=== PATIENT | female | born 1955 | race Caucasian/White ===

== ENCOUNTER 2016-07-02 16:35 | Emergency (ER) | payer OTHER ==
[~2016-07-02] VITALS: Ht 167.6 cm; Wt 136.8 kg
[~2016-07-02 16:35] MED LIST: ACETAMINOPHEN500 MG PO; ACID CONTROL150 MG PO; ADVIL,NUPRIN,M200 MG PO; ANTI-DIARRHEA2 MG PO; AUGMENTIN500 MG PO; Aspirin E.C. PO; BISACODYL SUPP10 MG PR; CIPRO500 MG PO; CYMBALTA60 MG PO; Cipro PO; DESYREL 150 MG150 MG PO; DESYREL100 MG PO; DILAUDID2 MG PO; Desyrel PO; FLAGYL500 MG PO; MELOXICAM7.5 MG PO; MOBIC15 MG PO; MOBIC7.5 MG PO; NEURONTIN300 MG PO; ONDANSETRON HCL4 M1 PO; ONE-A-DAY ESSE1 EAC1 PO; PANTOPRAZOLE SO40 MG PO; PERCOCET 5/31 TABLET PO; PRAVASTATIN SOD40 MG PO; PROBIOTIC1 EAC1 PO; Pepcid PO; Protonix PO; RANITIDINE HCL150 MG PO; REGLAN5 MG PO; SAVELLA50 MG PO; SKELAXIN800 MG PO; STOOL SOFTENER1 EAC2 PO; TORADOL10 MG PO; TRAZAMINE CONVE50 MG PO; TRAZODONE HCL150 MG PO; TYLENOL EXTRA500 MG PO; TYLENOL REGULA325 MG PO; ULTRAM50 MG PO; VICODIN 5-3001 EACH PO; ZANTAC150 MG PO; ZOFRAN4 MG PO
[2016-07-02] MEDS ORDERED: CYMBALTA60 MG PO (18:07)
[2016-07-02] MEDS ORDERED: MOTRIN800 MG PO (18:42)
[2016-07-02] MEDS ORDERED: VALIUM5 MG PO (18:42)
[2016-07-02] MEDS ORDERED: NORCO 5/3251 TABLET PO (18:42)
[2016-07-02 19:11] VITALS: BP 166/90
== END 2016-07-02 19:12 | disposition home or self-care (01) ==
LOC: EME 16:35
DX: S29.012A Strain of muscle and tendon of back wall of thorax, initial encounter (principal); W19.XXXA Unspecified fall, initial encounter; F17.200 Nicotine dependence, unspecified, uncomplicated
CPT/HCPCS: 73030; 99281; 99283

== ENCOUNTER 2016-09-22 17:15 | Emergency (ER) | payer OTHER ==
[~2016-09-22] VITALS: Ht 167.6 cm; Wt 136.4 kg
[~2016-09-22 17:15] MED LIST changes: +MOTRIN800 MG PO; +NORCO 5/3251 TABLET PO; +VALIUM5 MG PO
[2016-09-22] MEDS ORDERED: NAPROSYN500 MG PO (21:54)
[2016-09-22] MEDS ORDERED: NORCO 5/3251 TABLET PO (21:54)
[2016-09-22 22:14] VITALS: BP 129/81
== END 2016-09-22 22:17 | disposition home or self-care (01) ==
LOC: EXP 17:15 → EME 17:15 → EXP 22:17
DX: S43.402A Unspecified sprain of left shoulder joint, initial encounter (principal); X58.XXXA Exposure to other specified factors, initial encounter; F17.200 Nicotine dependence, unspecified, uncomplicated
CPT/HCPCS: 73030; 99281; 99284

== ENCOUNTER 2016-12-09 13:34 | Emergency (ER) | payer OTHER ==
[~2016-12-09] VITALS: Ht 172.7 cm; Wt 141.0 kg
[~2016-12-09 13:34] MED LIST changes: +NAPROSYN500 MG PO
[2016-12-09 15:59] LABS: HEMATOCRIT 43.3 % (36.0-46.0); MCH 29.9 PG (29.0-34.0); MCHC 31.2 G/DL (30.0-36.0); MCV 95.8 FL (83-99); MEAN PLAT.VOLUME 9.2 uM^3 (9.5-12.4); PLATELET COUNT 256 K/uL (156-360); RBC DIS.WIDTH-SD 52.3 % (39-53); RED BLOOD COUNT 4.52 M/uL (3.80-5.20); WHITE BLOOD COUNT 7.5 K/uL (4.1-10.2)
[2016-12-09 16:22] LABS: CHLORIDE 104 mEq/L (99-109); SODIUM 145 mEq/L (136-147)
[2016-12-09 16:24] LABS: GLUCOSE 114 mg/dL (70-99)
[2016-12-09 16:26] LABS: ANION GAP 10 MEQ/L (2-14); TOTAL BILIRUBIN 0.3 mg/dL (0.0-1.0)
[2016-12-09 16:28] LABS: ALKALINE PHOSPHATASE 95 IU/L (3-129); GFR ESTIMATE (CALCULATED) > 59 mL/min/
[2016-12-09 16:29] LABS: UREA NITROGEN (BUN) 13 mg/dL (9-23)
[2016-12-09 16:31] LABS: LIPASE 13 U/L (1.0-51.0)
[2016-12-09] MEDS ORDERED: ARTHRITIS PAIN650 M1 PO (19:36)
[2016-12-09] MEDS ORDERED: POTASSIUM CHLO10 ME3 PO (19:37)
[2016-12-09] MEDS ORDERED: VIIBRYD40 MG PO (19:38)
[2016-12-09] MEDS ORDERED: GABAPENTIN300 MG PO (19:39)
[2016-12-09] MEDS ORDERED: METOPROLOL SUC100 MG PO (19:39)
[2016-12-09] MEDS ORDERED: LASIX20 MG PO (19:40)
[2016-12-09] MEDS ORDERED: ZANTAC150 MG PO (19:40)
[2016-12-09] MEDS ORDERED: ALKA-SELTZER H1 EACH PO (19:41)
[2016-12-09 19:42] LABS: ABS NEUTROPHIL COUNT 5.8; BAND NEUTROPHILS 0.9 % (0-8.0); BASOPHILS 0.9 %; EOSINOPHIL ABS CT 0.1; EOSINOPHILS 0.9 % (0-5.0); LYMPHOCYTES 14.1 % (15.0-45.0); PLAT.SUFFICIENCY ADEQUATE
[2016-12-10 00:56] VITALS: BP 111/73
== END 2016-12-10 00:56 | disposition left against medical advice (07) ==
LOC: EME 13:34
PROVIDERS: Physician Assistant
DX: K56.60 Unspecified intestinal obstruction (principal); M54.5 Low back pain; Z53.20 Procedure and treatment not carried out because of patient's decision for unspecified reasons; M79.7 Fibromyalgia; K21.9 Gastro-esophageal reflux disease without esophagitis; F17.200 Nicotine dependence, unspecified, uncomplicated
CPT/HCPCS: 71020; 72131; 74176; 80053; 81003; 83690; 85007; 85027; 99281; 99284; J2250; J2405; J3010; J7030

== ENCOUNTER 2016-12-12 09:33 | Inpatient (IN) | payer OTHER ==
[~2016-12-12] VITALS: Ht 167.6 cm; Wt 139.5 kg
[~2016-12-12 09:33] MED LIST changes: +ALKA-SELTZER H1 EACH PO; +ARTHRITIS PAIN650 M1 PO; +GABAPENTIN300 MG PO; +LASIX20 MG PO; +METOPROLOL SUC100 MG PO; +POTASSIUM CHLO10 ME3 PO; +VIIBRYD40 MG PO
[2016-12-12 10:31] LABS: HEMATOCRIT 41.7 % (36.0-46.0); MCH 30.1 PG (29.0-34.0); MCHC 31.7 G/DL (30.0-36.0); MEAN PLAT.VOLUME 9.4 uM^3 (9.5-12.4); PLATELET COUNT 227 K/uL (156-360); RBC DIS.WIDTH-SD 51.9 % (39-53); RED BLOOD COUNT 4.39 M/uL (3.80-5.20); WHITE BLOOD COUNT 6.3 K/uL (4.1-10.2)
[2016-12-12 10:42] LABS: CHLORIDE 104 mEq/L (99-109); POTASSIUM 3.8 mEq/L (3.7-5.4); SODIUM 140 mEq/L (136-147)
[2016-12-12 10:44] LABS: GLUCOSE 102 mg/dL (70-99)
[2016-12-12 10:46] LABS: ANION GAP 8 MEQ/L (2-14)
[2016-12-12 10:48] LABS: ALKALINE PHOSPHATASE 106 IU/L (3-129); GFR ESTIMATE (CALCULATED) > 59 mL/min/
[2016-12-12 10:49] LABS: UREA NITROGEN (BUN) 8 mg/dL (9-23)
[2016-12-12 10:50] LABS: DIRECT BILIRUBIN 0.2 mg/dL (0.0-0.3)
[2016-12-12 10:51] LABS: LIPASE 961 U/L (1.0-51.0); TOTAL BILIRUBIN 0.4 mg/dL (0.0-1.0)
[2016-12-12 12:57] VITALS: BP 135/69
[2016-12-12 18:17] VITALS: BP 134/64
[2016-12-12 18:57] VITALS: BP 125/60
[2016-12-13 00:09] VITALS: BP 114/56
[2016-12-13 04:22] VITALS: BP 114/56
[2016-12-13 06:57] LABS: HEMATOCRIT 39.1 % (36.0-46.0); MCH 30.3 PG (29.0-34.0); MCHC 31.2 G/DL (30.0-36.0); MEAN PLAT.VOLUME 9.5 uM^3 (9.5-12.4); PLATELET COUNT 225 K/uL (156-360); RBC DIS.WIDTH-CV 14.9 % (11.8-14.6); RBC DIS.WIDTH-SD 53.2 % (39-53); RED BLOOD COUNT 4.03 M/uL (3.80-5.20); WHITE BLOOD COUNT 9.5 K/uL (4.1-10.2)
[2016-12-13 07:08] LABS: ANION GAP 8 MEQ/L (2-14); CHLORIDE 102 MEQ/L (99-109); GFR ESTIMATE (CALCULATED) > 59 mL/min/; GLUCOSE 148 mg/dL (70-99); POTASSIUM 4.1 MEQ/L (3.7-5.4); SAMPLE HEMOLYSIS CHECK 0; SAMPLE ICTERIC CHECK 0; SAMPLE LIPEMIA CHECK 0; SODIUM 140 MEQ/L (136-147); UREA NITROGEN (BUN) 6 mg/dL (9-23)
[2016-12-13 08:10] VITALS: BP 141/69
[2016-12-13 11:10] VITALS: BP 127/83
[2016-12-13 15:46] VITALS: BP 125/58
[2016-12-13 19:18] VITALS: BP 122/68
[2016-12-14 00:29] VITALS: BP 117/57
[2016-12-14 07:02] VITALS: BP 136/68
[2016-12-14] MEDS ORDERED: TORADOL10 MG PO (07:48)
== END 2016-12-14 12:42 | disposition home or self-care (01) | DRG 354 ==
LOC: EME 09:33 → EDOF 10:50 → 2EASTP 12:12 → 3EAST 17:51 → 2EASTP 18:11
PROVIDERS: Emergency Medicine; Surgery
PROC: 0WUF0JZ Supplement Abdominal Wall with Synthetic Substitute, Open Approach (ICD-10-PCS; principal; 2016-12-12)
DX: K43.0 Incisional hernia with obstruction, without gangrene (principal); Z68.42 Body mass index [BMI] 45.0-49.9, adult; E66.01 Morbid (severe) obesity due to excess calories; F17.210 Nicotine dependence, cigarettes, uncomplicated; K21.9 Gastro-esophageal reflux disease without esophagitis; M79.7 Fibromyalgia; K42.9 Umbilical hernia without obstruction or gangrene; M54.9 Dorsalgia, unspecified; M19.90 Unspecified osteoarthritis, unspecified site; Z90.49 Acquired absence of other specified parts of digestive tract
CPT/HCPCS: 71020; 72131; 74176; 80048; 80053; 80076; 81003; 83690; 85007; 85027; 86900; 86901; 87040; 93005; 94799; 99281; 99284; 99285; C1781; J0330; J1100; J1170; J2250; J2405; J2543; J3010; J3480; J7030

== ENCOUNTER 2017-01-09 14:32 | Emergency (ER) | payer OTHER ==
[~2017-01-09] VITALS: Ht 165.1 cm; Wt 141.0 kg
[2017-01-09 15:26] LABS: HEMATOCRIT 42.6 % (36.0-46.0); MCH 29.7 PG (29.0-34.0); MCHC 31.2 G/DL (30.0-36.0); MCV 95.1 FL (83-99); MEAN PLAT.VOLUME 9.6 uM^3 (9.5-12.4); PLATELET COUNT 225 K/uL (156-360); RBC DIS.WIDTH-CV 15.2 % (11.8-14.6); RBC DIS.WIDTH-SD 52.5 % (39-53); RED BLOOD COUNT 4.48 M/uL (3.80-5.20); WHITE BLOOD COUNT 7.3 K/uL (4.1-10.2)
[2017-01-09 15:35] LABS: CHLORIDE 107 mEq/L (99-109); POTASSIUM 3.6 mEq/L (3.7-5.4); SODIUM 144 mEq/L (136-147)
[2017-01-09 15:37] LABS: GLUCOSE 134 mg/dL (70-99)
[2017-01-09 15:38] LABS: ANION GAP 9 MEQ/L (2-14)
[2017-01-09 15:39] LABS: TOTAL BILIRUBIN 0.2 mg/dL (0.0-1.0)
[2017-01-09 15:40] LABS: ALKALINE PHOSPHATASE 129 IU/L (3-129)
[2017-01-09 15:41] LABS: GFR ESTIMATE (CALCULATED) > 59 mL/min/
[2017-01-09 15:42] LABS: UREA NITROGEN (BUN) 15 mg/dL (9-23)
[2017-01-09 15:44] LABS: LIPASE 27 U/L (1.0-51.0)
[2017-01-09 19:10] LABS: TROP-I INTERPRETATION NEGATIVE; TROPONIN-I < 0.01 ng/mL (0.0-0.30)
[2017-01-09 19:53] VITALS: BP 159/97
== END 2017-01-09 19:53 | disposition home or self-care (01) ==
LOC: EME 14:32 → EXP 14:32
PROVIDERS: Emergency Medicine
DX: R14.0 Abdominal distension (gaseous) (principal); R10.9 Unspecified abdominal pain; R11.0 Nausea; R19.7 Diarrhea, unspecified; Z98.890 Other specified postprocedural states; F17.200 Nicotine dependence, unspecified, uncomplicated; I10 Essential (primary) hypertension; Z90.49 Acquired absence of other specified parts of digestive tract
CPT/HCPCS: 74020; 74177; 80053; 81003; 83605; 83690; 84484; 85027; 99281; 99285; J1885; J7030; J7040

== ENCOUNTER 2017-07-03 18:55 | Inpatient (IN) | payer OTHER ==
[~2017-07-03] VITALS: Ht 160 cm; Wt 143.3 kg
[~2017-07-03 18:55] MED LIST changes: +ZANTAC300 MG PO
[2017-07-03 19:46] LABS: HEMATOCRIT 47.3 % (36.0-46.0); MCH 31.3 PG (29.0-34.0); MCHC 31.7 G/DL (30.0-36.0); MCV 98.5 FL (83-99); PLATELET COUNT 177 K/uL (156-360); RBC DIS.WIDTH-CV 16.4 % (11.8-14.6); RBC DIS.WIDTH-SD 59.5 % (39-53); WHITE BLOOD COUNT 4.9 K/uL (4.1-10.2)
[2017-07-03 19:56] LABS: CHLORIDE 100 mEq/L (99-109); POTASSIUM 3.8 mEq/L (3.7-5.4); SODIUM 138 mEq/L (136-147)
[2017-07-03 19:58] LABS: GLUCOSE 121 mg/dL (70-99)
[2017-07-03 20:02] LABS: CREATININE 0.6 mg/dL (0.6-1.3); GFR ESTIMATE (CALCULATED) > 59 mL/min/; UREA NITROGEN (BUN) 11 mg/dL (9-23)
[2017-07-03] MEDS ORDERED: IBUPROFEN600 MG PO (22:40)
[2017-07-03] MEDS ORDERED: LISINOPRIL10 MG PO (22:40)
[2017-07-03] MEDS ORDERED: ADULT ASPIRIN R81 MG PO (22:40)
[2017-07-03] MEDS ORDERED: FLEXERIL10 MG PO (22:40)
[2017-07-03] MEDS ORDERED: WELLBUTRIN XL150 MG PO (22:40)
[2017-07-03] MEDS ORDERED: SEROQUEL12.5 MG PO (22:40)
[2017-07-04] VITALS (13 sets, daily range): BP systolic 90–153; BP diastolic 59–91
[2017-07-04 00:17] LABS: BASE EXCESS 2.3 mEq/L (-3 to +3); CARBOXY HGB 5.8 % (0-5); COMMENTS - BLOOD GASES C+A+; DEVICE NC; METHEMOGLOBIN 0.1 % (0-1.5); O2 FLOW 5 L/MIN; PCO2 73 mm Hg (35-45); PO2 89 mm Hg (80-100); SITE LR
[2017-07-04 00:18] LABS: pH 7.25 (7.35-7.45)
[2017-07-04 01:19] LABS: TROP-I INTERPRETATION NEGATIVE; TROPONIN-I 0.02 ng/mL (0.0-0.30)
[2017-07-04 02:02] LABS: BASE EXCESS 2.5 mEq/L (-3 to +3); CARBOXY HGB 4.5 % (0-5); COMMENTS - BLOOD GASES C+A+; DEVICE HHFNC; FI02 50 %; METHEMOGLOBIN 0.8 % (0-1.5); O2 FLOW 45 L/MIN; PCO2 87 mm Hg (35-45); PO2 65 mm Hg (80-100); SITE LB
[2017-07-04 03:41] LABS: BASE EXCESS 3.8 mEq/L (-3 to +3); BICARBONATE 32.7 mEq/L (22-26); CARBOXY HGB 5.7 % (0-5); METHEMOGLOBIN 0.1 % (0-1.5); PCO2 68 mm Hg (35-45); PO2 73 mm Hg (80-100)
[2017-07-04 03:42] LABS: COMMENTS - BLOOD GASES C+A+; DEVICE NIV; FI02 50 %; SITE RR
[2017-07-04 03:43] LABS: MODE SPONT; PEEP 7 CM/H20; PRES. SUPPORT 12 CM/H2O; TOTAL RESP RATE 18 resp/min; pH 7.29 (7.35-7.45)
[2017-07-04 04:39] LABS: BASE EXCESS 2.4 mEq/L (-3 to +3); BICARBONATE 32.6 mEq/L (22-26); PO2 76 mm Hg (80-100)
[2017-07-04 04:40] LABS: COMMENTS - BLOOD GASES C+A+; DEVICE NIV; FI02 50 %; MODE SPONT; PCO2 76 mm Hg (35-45); PEEP 7 CM/H20; PRES. SUPPORT 12 CM/H2O; SITE RR; TOTAL RESP RATE 16 resp/min; pH 7.24 (7.35-7.45)
[2017-07-04 07:28] LABS: BASE EXCESS 1.5 mEq/L (-3 to +3); BICARBONATE 31.8 mEq/L (22-26); CARBOXY HGB 3.7 % (0-5); PCO2 76 mm Hg (35-45); PO2 73 mm Hg (80-100)
[2017-07-04 07:29] LABS: COMMENTS - BLOOD GASES A+C+; DEVICE PB VENT; FI02 45 %; MODE SPONT NIV; PEEP 7 CM/H20; PRES. SUPPORT 14 CM/H2O; SITE RR; TOTAL RESP RATE 15 resp/min; pH 7.23 (7.35-7.45)
[2017-07-04 10:05] LABS: BICARBONATE 29.1 mEq/L (22-26); CARBOXY HGB 3.6 % (0-5); COMMENTS - BLOOD GASES A+C+; METHEMOGLOBIN 1.3 % (0-1.5); PCO2 54 mm Hg (35-45); PO2 64 mm Hg (80-100); SITE RR; pH 7.34 (7.35-7.45)
[2017-07-04 10:06] LABS: DEVICE VENT; FI02 50 %; MECHANICAL RATE 18 resp/min; MODE ACVC; PEEP 8 CM/H20; TIDAL VOLUME 500 ML; TOTAL RESP RATE 18 resp/min
[2017-07-05] VITALS (22 sets, daily range): BP systolic 84–133; BP diastolic 58–86
[2017-07-05 05:35] LABS: HEMATOCRIT 43.1 % (36.0-46.0); HEMOGLOBIN 13.8 G/DL (11.9-15.5); MCH 31.1 PG (29.0-34.0); MCV 97.1 FL (83-99); PLATELET COUNT 212 K/uL (156-360); RBC DIS.WIDTH-CV 16.9 % (11.8-14.6); RED BLOOD COUNT 4.44 M/uL (3.80-5.20); WHITE BLOOD COUNT 9.6 K/uL (4.1-10.2)
[2017-07-05 06:19] LABS: CHLORIDE 98 MEQ/L (99-109); GFR ESTIMATE (CALCULATED) 44 mL/min/; GLUCOSE 155 mg/dL (70-99); POTASSIUM 3.7 MEQ/L (3.7-5.4); SODIUM 135 MEQ/L (136-147)
[2017-07-05 06:34] LABS: CREATININE 1.3 MG/DL (0.6-1.3); UREA NITROGEN (BUN) 30 mg/dL (9-23)
[2017-07-06] VITALS (24 sets, daily range): BP systolic 86–156; BP diastolic 53–105
[2017-07-06 04:49] LABS: CHLORIDE 102 mEq/L (99-109); POTASSIUM 3.8 mEq/L (3.7-5.4); SODIUM 137 mEq/L (136-147)
[2017-07-06 04:51] LABS: GLUCOSE 153 mg/dL (70-99)
[2017-07-06 04:54] LABS: GFR ESTIMATE (CALCULATED) > 59 mL/min/
[2017-07-06 04:55] LABS: UREA NITROGEN (BUN) 30 mg/dL (9-23)
[2017-07-06 05:04] LABS: CREATININE 0.7 mg/dL (0.6-1.3)
[2017-07-06 17:20] LABS: BASOPHIL (%) 0.1 % (0-1); EOSINOPHIL (%) 0 % (0-5); HEMATOCRIT 42.6 % (36.0-46.0); HEMOGLOBIN 13.9 G/DL (11.9-15.5); IMMATURE GRANULOCYTE (%) 0.4 % (0.0-0.7); LYMPHOCYTE (%) 8.7 % (15-42); LYMPHOCYTE COUNT 0.9 K/uL (1.0-2.8); MCH 31.8 PG (29.0-34.0); MCHC 32.6 G/DL (30.0-36.0); MCV 97.5 FL (83-99); MONOCYTE (%) 7.3 % (3-12); MONOCYTE COUNT 0.7 K/uL (0-0.8); NEUTROPHIL (%) 83.5 % (45-76); NEUTROPHIL COUNT 8.5 K/uL (1.8-6.4); PLATELET COUNT 195 K/uL (156-360); RBC DIS.WIDTH-CV 16.9 % (11.8-14.6); RBC DIS.WIDTH-SD 60.3 % (39-53); RED BLOOD COUNT 4.37 M/uL (3.80-5.20); WHITE BLOOD COUNT 10.1 K/uL (4.1-10.2)
[2017-07-06 18:08] LABS: ALBUMIN 3.5 G/DL (3.2-4.8); ALKALINE PHOSPHATASE 81 IU/L (3-129); ALT (GPT) 11 IU/L (3-49); AST (GOT) 10 IU/L (2-34); CHLORIDE 102 MEQ/L (99-109); CREATININE 0.6 MG/DL (0.6-1.3); GFR ESTIMATE (CALCULATED) > 59 mL/min/; GLUCOSE 130 mg/dL (70-99); POTASSIUM 4.2 MEQ/L (3.7-5.4); SODIUM 138 MEQ/L (136-147); TOTAL BILIRUBIN 0.3 MG/DL (0.0-1.0); TOTAL PROTEIN 6.3 G/DL (6.4-8.3); UREA NITROGEN (BUN) 29 mg/dL (9-23)
[2017-07-06 18:31] LABS: HIGH-SENS C-REACTIVE PROTEIN 0.76 MG/DL (0.02-0.20); MAGNESIUM 2.4 mg/dl (1.3-2.7); PHOSPHORUS 3.4 mg/dL (2.5-4.9)
[2017-07-07] VITALS (19 sets, daily range): BP systolic 127–158; BP diastolic 71–121
[2017-07-07 05:18] LABS: BASE EXCESS 3.8 mEq/L (-3 to +3); BICARBONATE 31.3 mEq/L (22-26); COMMENTS - BLOOD GASES C+; FI02 50 %; METHEMOGLOBIN 1.3 % (0-1.5); PCO2 58 mm Hg (35-45); PO2 80 mm Hg (80-100); SITE RR; pH 7.34 (7.35-7.45)
[2017-07-07 05:19] LABS: DEVICE VENTI; TOTAL RESP RATE 20 resp/min
[2017-07-07 16:17] LABS: BASE EXCESS 5.3 mEq/L (-3 to +3); BICARBONATE 31.1 mEq/L (22-26); CARBOXY HGB 2.4 % (0-5); COMMENTS - BLOOD GASES A+C+; DEVICE NC; METHEMOGLOBIN 1.6 % (0-1.5); O2 FLOW 2 L/MIN; PCO2 49 mm Hg (35-45); PO2 59 mm Hg (80-100); SITE RR; pH 7.41 (7.35-7.45)
[2017-07-07 16:58] LABS: BASOPHIL (%) 0.1 % (0-1); EOSINOPHIL (%) 0 % (0-5); HEMATOCRIT 45.1 % (36.0-46.0); HEMOGLOBIN 14.1 G/DL (11.9-15.5); IMMATURE GRANULOCYTE (%) 0.4 % (0.0-0.7); LYMPHOCYTE (%) 13.9 % (15-42); LYMPHOCYTE COUNT 1.5 K/uL (1.0-2.8); MCH 30.7 PG (29.0-34.0); MCHC 31.3 G/DL (30.0-36.0); MCV 98.3 FL (83-99); MONOCYTE (%) 8.8 % (3-12); MONOCYTE COUNT 0.9 K/uL (0-0.8); NEUTROPHIL (%) 76.8 % (45-76); NEUTROPHIL COUNT 8.2 K/uL (1.8-6.4); PLATELET COUNT 211 K/uL (156-360); RBC DIS.WIDTH-CV 16.8 % (11.8-14.6); RBC DIS.WIDTH-SD 60.9 % (39-53); RED BLOOD COUNT 4.59 M/uL (3.80-5.20); WHITE BLOOD COUNT 10.7 K/uL (4.1-10.2)
[2017-07-07 17:24] LABS: ALBUMIN 3.6 G/DL (3.2-4.8); ALKALINE PHOSPHATASE 92 IU/L (3-129); CHLORIDE 104 MEQ/L (99-109); CREATININE 0.6 MG/DL (0.6-1.3); GFR ESTIMATE (CALCULATED) > 59 mL/min/; GLUCOSE 121 mg/dL (70-99); MAGNESIUM 2.5 mg/dl (1.3-2.7); POTASSIUM 4.6 MEQ/L (3.7-5.4); SODIUM 140 MEQ/L (136-147); TOTAL PROTEIN 6.6 G/DL (6.4-8.3); UREA NITROGEN (BUN) 31 mg/dL (9-23)
[2017-07-07 17:25] LABS: ALT (GPT) 24 IU/L (3-49); AST (GOT) 24 IU/L (2-34); TOTAL BILIRUBIN 0.6 MG/DL (0.0-1.0)
[2017-07-08] VITALS (11 sets, daily range): BP systolic 0–169; BP diastolic 0–124
[2017-07-08 17:07] LABS: BASOPHIL (%) 0.2 % (0-1); EOSINOPHIL (%) 0 % (0-5); HEMATOCRIT 44.7 % (36.0-46.0); HEMOGLOBIN 14.3 G/DL (11.9-15.5); IMMATURE GRANULOCYTE (%) 0.6 % (0.0-0.7); LYMPHOCYTE (%) 12.5 % (15-42); LYMPHOCYTE COUNT 1.2 K/uL (1.0-2.8); MCH 30.9 PG (29.0-34.0); MCV 96.5 FL (83-99); MONOCYTE (%) 7.9 % (3-12); MONOCYTE COUNT 0.8 K/uL (0-0.8); NEUTROPHIL (%) 78.8 % (45-76); NEUTROPHIL COUNT 7.8 K/uL (1.8-6.4); PLATELET COUNT 223 K/uL (156-360); RBC DIS.WIDTH-SD 57.3 % (39-53); RED BLOOD COUNT 4.63 M/uL (3.80-5.20); WHITE BLOOD COUNT 9.9 K/uL (4.1-10.2)
[2017-07-08 17:24] LABS: ALBUMIN 3.6 G/DL (3.2-4.8); ALKALINE PHOSPHATASE 94 IU/L (3-129); AST (GOT) 34 IU/L (2-34); CHLORIDE 103 MEQ/L (99-109); CREATININE 0.5 MG/DL (0.6-1.3); GFR ESTIMATE (CALCULATED) > 59 mL/min/; GLUCOSE 120 mg/dL (70-99); MAGNESIUM 2.3 mg/dl (1.3-2.7); POTASSIUM 4.9 MEQ/L (3.7-5.4); SODIUM 138 MEQ/L (136-147); TOTAL BILIRUBIN 0.5 MG/DL (0.0-1.0); TOTAL PROTEIN 6.3 G/DL (6.4-8.3); UREA NITROGEN (BUN) 28 mg/dL (9-23)
[2017-07-08 17:25] LABS: ALT (GPT) 50 IU/L (3-49)
[2017-07-09] VITALS (9 sets, daily range): BP systolic 136–167; BP diastolic 74–113
[2017-07-09 15:57] LABS: M. pneumoniae Ab, IgG 1.12 (<=0.90); M. pneumoniae Ab, IgM 284 U/mL (<770)
[2017-07-09 17:32] LABS: BASOPHIL (%) 0.2 % (0-1); EOSINOPHIL (%) 0 % (0-5); HEMATOCRIT 48.8 % (36.0-46.0); HEMOGLOBIN 15.8 G/DL (11.9-15.5); IMMATURE GRANULOCYTE (%) 0.8 % (0.0-0.7); LYMPHOCYTE (%) 11.6 % (15-42); LYMPHOCYTE COUNT 1.3 K/uL (1.0-2.8); MCH 30.7 PG (29.0-34.0); MCHC 32.4 G/DL (30.0-36.0); MCV 94.8 FL (83-99); MONOCYTE (%) 6.5 % (3-12); MONOCYTE COUNT 0.7 K/uL (0-0.8); NEUTROPHIL (%) 80.9 % (45-76); NEUTROPHIL COUNT 9.2 K/uL (1.8-6.4); PLATELET COUNT 230 K/uL (156-360); RBC DIS.WIDTH-CV 15.5 % (11.8-14.6); RBC DIS.WIDTH-SD 54.4 % (39-53); RED BLOOD COUNT 5.15 M/uL (3.80-5.20); WHITE BLOOD COUNT 11.3 K/uL (4.1-10.2)
[2017-07-09 18:02] LABS: ALBUMIN 3.8 G/DL (3.2-4.8); ALKALINE PHOSPHATASE 94 IU/L (3-129); ALT (GPT) 47 IU/L (3-49); CHLORIDE 98 MEQ/L (99-109); CREATININE 0.6 MG/DL (0.6-1.3); GFR ESTIMATE (CALCULATED) > 59 mL/min/; GLUCOSE 113 mg/dL (70-99); MAGNESIUM 2.2 mg/dl (1.3-2.7); PHOSPHORUS 3.1 mg/dL (2.5-4.9); POTASSIUM 4.5 MEQ/L (3.7-5.4); SODIUM 137 MEQ/L (136-147); TOTAL BILIRUBIN 0.5 MG/DL (0.0-1.0); TOTAL PROTEIN 6.5 G/DL (6.4-8.3); UREA NITROGEN (BUN) 25 mg/dL (9-23)
[2017-07-09 18:03] LABS: AST (GOT) 18 IU/L (2-34)
[2017-07-10 04:10] VITALS: BP 130/72
[2017-07-10 07:20] VITALS: BP 127/74
[2017-07-10 11:10] VITALS: BP 143/79
[2017-07-10] MEDS ORDERED: AMOX TR-K CLV1 EAC4 PO (12:00)
[2017-07-10] MEDS ORDERED: ADVAIR HFA120 INHALA IH (12:00)
[2017-07-10] MEDS ORDERED: VENTOLIN HFA18 GM IH (12:02)
[2017-07-10] MEDS ORDERED: MEDROL DOSEPAK4 MG PO (12:02)
== END 2017-07-10 14:35 | disposition home or self-care (01) | DRG 208 ==
LOC: EME → EDBD 18:55 → EME 18:55 → 4WEST 07-04 07:04 → EDOF 07-04 07:04 → ENRESERV 07-04 07:05 → EDOF 07-04 07:44 → 4WEST 07-04 08:16 → ENRESERV 07-09 → 4WEST 07-09 14:32 → ENRESERV 07-09 14:38 → 5EAST 07-09 16:35 → ENPENDDIS 07-10 → 5EAST 07-10 14:35
PROVIDERS: Emergency Medicine; Hospitalist; Internal Medicine; Internal Medicine Pulmonary Disease; Student in an Organized Health Care Education/Training Program; Surgery
PROC: 0BH18EZ Insertion of Endotracheal Airway into Trachea, Via Natural or Artificial Opening Endoscopic (ICD-10-PCS; principal; 2017-07-04)
PROC: 5A09357 Assistance with Respiratory Ventilation, Less than 24 Consecutive Hours, Continuous Positive Airway Pressure (ICD-10-PCS; principal; 2017-07-04)
PROC: 5A1945Z Respiratory Ventilation, 24-96 Consecutive Hours (ICD-10-PCS; principal; 2017-07-04)
DX: J96.22 Acute and chronic respiratory failure with hypercapnia (principal); J44.1 Chronic obstructive pulmonary disease with (acute) exacerbation; J44.0 Chronic obstructive pulmonary disease with (acute) lower respiratory infection; J20.9 Acute bronchitis, unspecified; E87.1 Hypo-osmolality and hyponatremia; I50.30 Unspecified diastolic (congestive) heart failure; I11.0 Hypertensive heart disease with heart failure; I27.20 Pulmonary hypertension, unspecified; E66.2 Morbid (severe) obesity with alveolar hypoventilation; Z68.43 Body mass index [BMI] 50.0-59.9, adult; J96.21 Acute and chronic respiratory failure with hypoxia; R79.89 Other specified abnormal findings of blood chemistry; G47.33 Obstructive sleep apnea (adult) (pediatric); M79.7 Fibromyalgia; G89.4 Chronic pain syndrome; K21.9 Gastro-esophageal reflux disease without esophagitis; F32.9 Major depressive disorder, single episode, unspecified; F41.9 Anxiety disorder, unspecified; M19.90 Unspecified osteoarthritis, unspecified site; F17.200 Nicotine dependence, unspecified, uncomplicated; Z80.0 Family history of malignant neoplasm of digestive organs
CPT/HCPCS: 36600; 71045; 71046; 71275; 80048; 80053; 82803; 82948; 83605; 83735; 83880; 84100; 84145 90; 84484; 85025; 85027; 85379; 86141; 86713 90; 86738 90; 87040; 87070; 87205; 87449; 87502; 87641; 93005; 93306; 94002; 94003; 94640; 94640 76; 94644; 94660; 94760; 94799; 99202; 99281; 99285; J0456; J0696; J1644; J2060; J2704; J2920; J2930; J7030; J7512; S0028